=== PATIENT | female | born 1960 | race Hispanic/Latino ===

== ENCOUNTER 2016-07-02 04:02 | Emergency (ER) | payer OTHER ==
[~2016-07-02] VITALS: Ht 154.9 cm; Wt 71.3 kg
[~2016-07-02 04:02] MED LIST: NOHOMEMEDS
[2016-07-02] MEDS ORDERED: ZOFRAN ODT4 MG PO (11:24)
[2016-07-02 12:15] VITALS: BP 123/61
== END 2016-07-02 12:16 | disposition home or self-care (01) ==
LOC: EME 04:02
DX: S09.90XA Unspecified injury of head, initial encounter (principal); S06.0X0A Concussion without loss of consciousness, initial encounter; W07.XXXA Fall from chair, initial encounter; E11.9 Type 2 diabetes mellitus without complications; I10 Essential (primary) hypertension; E78.5 Hyperlipidemia, unspecified
CPT/HCPCS: 99281; 99284

== ENCOUNTER → 2016-08-05 | Outpatient (CLI) | payer OTHER ==
[~2016-08-05] MED LIST changes: +ZOFRAN ODT4 MG PO
== END | disposition home or self-care (01) ==
LOC: RAD 11:38
DX: S22.41XA Multiple fractures of ribs, right side, initial encounter for closed fracture (principal); R22.2 Localized swelling, mass and lump, trunk
CPT/HCPCS: 71260